=== PATIENT | male | born 1980 | race Caucasian/White ===

== ENCOUNTER 2018-11-28 15:38 | Emergency (ER) | payer OTHER ==
[~2018-11-28] VITALS: Ht 185.4 cm; Wt 77.1 kg
[2018-11-28] MEDS ORDERED: Zithromax250 MG PO (15:54)
== END 2018-11-28 15:57 | disposition home or self-care (01) ==
LOC: ER 15:38
DX: R05 Cough (principal); Z91.048 Other nonmedicinal substance allergy status
CPT/HCPCS: 99283